=== PATIENT | male | born 1935 | race Caucasian/White ===

== ENCOUNTER 2016-05-25 13:05 | Inpatient (IN) | payer OTHER, MEDICARE ==
[~2016-05-25] VITALS: Ht 175.3 cm; Wt 86.0 kg
[2016-05-25 14:19] LABS: HEMATOCRIT 47.7 % (38.0-50.0); MCH 32.7 PG (29.0-34.0); MCHC 35.2 G/DL (30.0-36.0); MCV 92.8 FL (86-99); MEAN PLAT.VOLUME 10.2 uM^3 (9.0-12.4); PLATELET COUNT 219 K/uL (156-360); RBC DIS.WIDTH-CV 12.7 % (11.8-14.6); RBC DIS.WIDTH-SD 41.8 % (39-53); RED BLOOD COUNT 5.14 M/uL (4.00-5.50); WHITE BLOOD COUNT 9.5 K/uL (4.1-10.2)
[2016-05-25 14:30] LABS: CHLORIDE 104 mEq/L (99-109); POTASSIUM 4.8 mEq/L (3.7-5.4); SODIUM 140 mEq/L (136-147)
[2016-05-25 14:32] LABS: GLUCOSE 117 mg/dL (70-99)
[2016-05-25 14:33] LABS: ANION GAP 12 MEQ/L (2-14)
[2016-05-25 14:36] LABS: GFR ESTIMATE (CALCULATED) > 59 mL/min/; UREA NITROGEN (BUN) 10 mg/dL (9-23)
[2016-05-25 15:15] LABS: ADD MIUA? YES; BILIRUBIN NEGATIVE; BLOOD NEGATIVE; COLOR YELLOW ((YELLOW)); GLUCOSE (STRIP) NEGATIVE; KETONES NEGATIVE; LEUKOCYTES SMALL; NITRITE NEGATIVE; PH, URINE 6.5 (5-8); PROTEIN (STRIP) NEGATIVE; SPECIFIC GRAVITY 1.007 (1.000-1.030)
[2016-05-25 15:22] LABS: INTER. NORMALIZED RATIO 1.1; PROTHROMBIN TIME 10.7 (9.2-11.2)
[2016-05-25 15:36] LABS: RED BLOOD CELLS 0-5 /HPF (0-5); WHITE BLOOD CELLS 0-5 /HPF (0-5)
[2016-05-25 15:37] LABS: BACTERIA RARE; CASTS NONE SEEN /LPF; CRYSTALS NONE SEEN; EPITHELIAL CELLS RARE; MUCUS NONE SEEN; UCUL ADDED? NO
[2016-05-25 21:59] VITALS: BP 167/87; BP 168/87
[2016-05-26] VITALS: BP 165/89
[2016-05-26 04:00] VITALS: BP 136/78
[2016-05-26 05:35] LABS: HEMATOCRIT 46.1 % (38.0-50.0); MCH 32.6 PG (29.0-34.0); MCHC 34.1 G/DL (30.0-36.0); MCV 95.6 FL (86-99); PLATELET COUNT 196 K/uL (156-360); RBC DIS.WIDTH-CV 12.7 % (11.8-14.6); RBC DIS.WIDTH-SD 44.1 % (39-53); RED BLOOD COUNT 4.82 M/uL (4.00-5.50)
[2016-05-26 06:02] LABS: ANION GAP 10 MEQ/L (2-14); CHLORIDE 106 MEQ/L (99-109); GFR ESTIMATE (CALCULATED) > 59 mL/min/; GLUCOSE 104 mg/dL (70-99); POTASSIUM 4.1 MEQ/L (3.7-5.4); SAMPLE HEMOLYSIS CHECK 0; SAMPLE ICTERIC CHECK 0; SAMPLE LIPEMIA CHECK 0; SODIUM 141 MEQ/L (136-147); UREA NITROGEN (BUN) 10 mg/dL (9-23)
[2016-05-26 07:20] VITALS: BP 147/79
[2016-05-26 08:10] LABS: HDL CHOLESTEROL 23 MG/DL (Desirable>=40); LDL CHOLESTEROL 52 mg/dL (Desirable<100); NON-HDL CHOLESTEROL 75 mg/dL (Desirable<160); TOTAL CHOLESTEROL 98 mg/dL (Desirable<200); TRIGLYCERIDES 115 MG/DL (Normal: <150)
[2016-05-26 12:24] VITALS: BP 128/95
[2016-05-26 16:25] VITALS: BP 153/84
[2016-05-26] MEDS ORDERED: AMLODIPINE BESYL5 MG PO (17:50)
[2016-05-26 19:06] VITALS: BP 133/68
[2016-05-27 00:32] VITALS: BP 133/72
[2016-05-27 04:41] VITALS: BP 144/69
[2016-05-27 07:54] LABS: Estimated Average Glucose 108 mg/dL (70-123); HEMOGLOBIN A1c (GLYCOHEMOGLOB) 5.4 % HGB (Below 5.7)
[2016-05-27 08:00] VITALS: BP 130/70
[2016-05-27] MEDS ORDERED: NORVASC5 MG PO ×2 (11:40→13:02)
== END 2016-05-27 13:30 | disposition home or self-care (01) | DRG 66 ==
LOC: EME 13:05 → 4EAST 15:20 → EDOF 15:20 → 4EAST 21:35
PROVIDERS: Emergency Medicine; Hospitalist; Internal Medicine
DX: I61.8 Other nontraumatic intracerebral hemorrhage (principal); I10 Essential (primary) hypertension; D75.1 Secondary polycythemia; Z87.891 Personal history of nicotine dependence; Z88.6 Allergy status to analgesic agent
CPT/HCPCS: 70450; 71020; 80048; 80061; 81003; 82668 90; 83036; 85027; 85610; 85730; 93005; 93880; 99281; 99285; J7030